=== PATIENT | female | born 1990 | race Caucasian/White ===

== ENCOUNTER 2024-12-19 11:37 | Outpatient (CLI) | payer MEDICAID ==
[2024-12-19 12:12] LABS: MEAN PLATELET VOLUME 9.1 FL (7.4-10.4); RED CELL DISTRIBUTION WIDTH 13.9 % (11.5-14.5)
== END 2024-12-19 23:59 | disposition home or self-care (01) ==
LOC: LAB 11:37
PROVIDERS: ATTEND Registered Nurse
DX: R03.0 Elevated blood-pressure reading, without diagnosis of hypertension (principal)
CPT/HCPCS: 36415; 82043; 82570; 84550; 85025